=== PATIENT | male | born 1995 | race Caucasian/White ===

== ENCOUNTER 2016-05-27 10:31 | Observation (INO) | payer OTHER, BC ==
--- NOTE | ~2016-05-27 | OR ---
Unit #: [id number] #: [id number] Patient: RACHEL SANTOS [id number] [address] [place], [place] [address] [id number] MR#: [id number] NAME: RACHEL SANTOS ROOM: 221 Date of Procedure: 05/28/2016 Admission Date: 05/27/2016 Surgeon: Skyler Johnson M.D. : 1995 Attending Physician: Aayush Wheeler M.D. Primary Care Physician: Nico Barton M.D. OPERATIVE REPORT PRIMARY CARE PHYSICIAN Dr. Nico Bartno. PREOPERATIVE DIAGNOSES Nausea, vomiting, and epigastric pain. PROCEDURE PERFORMED Upper gastrointestinal endoscopy. POSTOPERATIVE DIAGNOSES The patient had grade 2 distal erosive esophagitis. Otherwise, examination was normal up to third part of duodenum. A biopsy was obtained from the antrum for CLOtest. RECOMMENDATIONS The patient will be started on pantoprazole 40 mg p.o. b.i.d. 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 A detailed discussion was held with the patient and his father, and literature was given regarding the condition, and he was strongly advised to stop using marijuana. We will also start him on diet as tolerated. SEDATION USED Procedural sedation. DESCRIPTION OF PROCEDURE Following detailed explanation of potential risks and complications of an upper endoscopy, namely perforation, bleeding, complications related to sedation, the patient was brought to GI lab and laid in the left lateral decubitus position. Lubricated tip of the Olympus video upper endoscope was passed through the bite block into the proximal esophagus under direct vision. The entire esophageal mucosa was examined, and the patient was noted to have grade 2 distal erosive esophagitis. The scope was then advanced. Entire esophageal mucosa was examined. The patient was noted to have grade 2 distal erosive esophagitis. No stricture was present. The scope was then advanced into the gastric cavity, the latter was insufflated. Mucosa of the fundus, body, and antrum was examined and appeared unremarkable. Pylorus was intubated with visualization of the normal duodenal bulb and second and third part of the duodenum. Upon withdrawal and retroflexion, incisura, cardia, and greater curve examined and biopsy obtained from the antrum for CLOtest. The scope was then Unit #: [id number] #: [id number] Patient: RACHEL SANTOS withdrawn in the distal esophagus. Entire esophageal mucosa was examined all the way up to pharynx. No additional findings noted. The patient tolerated the procedure without any postprocedure complications. Dictated by.Regina Leal TD: 05/29/2016 06:04 JOB #: [id number] OPERATIVE REPORT Page 1 of 1 X Skyler Johnson MD X PROCEDURE OPERATIVE NOTE
--- NOTE | ~2016-05-27 | CO ---
Unit #: [id number] #: [id number] Patient: RACHEL SANTOS [id number] [address] [facility]. [place], [place] [address] [id number] MR#: [id number] NAME: RACHEL SANTOS ROOM: 221 Age: 20 Sex: M Admission Date: 05/27/2016 : 1995 Attending Physician: Aayush Wheeler M.D. Primary Care Physician: Nico Barton M.D. Consultation Date: 05/28/2016 CONSULTATION REPORT PRIMARY CARE PHYSICIAN Nico Barton. REASON FOR CONSULTATION Nausea, vomiting, and upper abdominal pain. HISTORY OF PRESENT ILLNESS Rachel is a 20-year-old gentleman, who has presented with history of nausea and vomiting along with upper abdominal pain over the past few days. The patient has had multiple episodes of similar nature and has been admitted at [facility] with similar symptoms. He has been diagnosed having cyclic vomiting syndrome and has been transferred to [facility] for evaluation. His pain is primarily in the upper abdomen, although slightly diffuse. He has some diarrhea which has since resolved. It is noteworthy that the patient has similar symptoms over the past couple of years having had multiple hospitalizations for the same. PAST MEDICAL HISTORY Significant for history of gastroesophageal reflux; depression; peptic ulcer disease; history of fracture of the cervical 6th, 4th, and 7th vertebrae which improved with white collar. History of perforated colon, status post surgery in 2014. MEDICATIONS At home included Protonix and Zoloft. FAMILY HISTORY Significant for cirrhosis. SOCIAL HISTORY He smokes half pack of cigarette daily. He uses marijuana on a regular basis. Does not drink alcohol. REVIEW OF SYSTEMS Detailed review of organ systems does not reveal any recent weight loss. No history of fever, chills, or rigors. No history of headache, seizures, chest pain, or syncope. No history of cough, expectoration, or hemoptysis. No history of dysuria, hematuria, or pyuria. No history of focal seizures or extremity weakness. PHYSICAL EXAMINATION GENERAL: He is alert and oriented, and comfortable. VITAL SIGNS: Stable with a temperature of 97.5, pulse is varying between Unit #: [id number] #: [id number] Patient: RACHEL SANTOS 50 to 60 per minute and regular, respiratory rate is 16, blood pressure is 124/85. He weighs 220 pounds and appears well nourished. GENERAL: He has no pallor, icterus, lymphadenopathy, or peripheral edema. CARDIOVASCULAR: Normal heart sounds. No murmurs on auscultation. LUNGS: Over the lungs reveal normal breath sounds. Good air entry. ABDOMEN: Soft and nontender. Liver and spleen are not palpable. Bowel sounds normal. DIAGNOSTIC STUDIES LABORATORY RESULTS: Shows a normal CBC and serum chemistry shows a normal metabolic profile except for amylase and lipase of 74 and 55 respectively. These were 58 and 77 yesterday. IMAGING STUDIES: The patient has had a CT scan of the abdomen. CLINICAL IMPRESSION The most likely etiology of the patient's presentation is cyclic vomiting syndrome due to cannabinoid hyperemesis syndrome. Supportive and symptomatic treatment is in order, but the single most important determinant of his outcome is ability of the patient is to completely get rid of marijuana from his routine. This was discussed in great length with the patient and his father. A diagnostic endoscopy is warranted and will be done shortly. The pros and cons of procedure, potential risks, and complications were discussed with the patient and he was reassured. Thank you for asking me to see this young man. I appreciate the consult. Dictated by... Regina Rodrigues/nilsa TD: 05/30/2016 03:31 JOB #: [id number] CONSULTATION REPORT Page 1 of 1 X Skyler Johnson MD X CONSULTATION REPORT
--- NOTE | ~2016-05-27 | HP ---
Unit #: [id number] #: [id number] Patient: RACHEL SANTOS [id number] [address] [place], [place] [address] [id number] I MR#: [id number] NAME: RACHEL SANTOS ROOM: 221 Age: 20 Sex: M Admission Date: 05/27/2016 : 1995 Attending Physician: Aayush Wheeler M.D. Primary Care Physician: Nico Barton M.D. HISTORY AND PHYSICAL CHIEF COMPLAINT Nausea, vomiting, and abdominal pain. DISCUSSION This is a 20-year-old gentleman who has a past medical history of acid reflux, peptic ulcer disease, depression, history of recurrent nausea, vomiting, and abdominal pain in the past. Has had repeated episodes in the past. He presented today in the [facility] with chief complaining of nausea, vomiting, and abdominal pain and he was found to be with the diagnosis of mild pancreatitis and with cyclic vomiting syndrome and, eventually, (1) observation and being admitted here. He said the symptoms started this morning. He has many times vomited, 20 times. He is complaining of diffuse abdominal pain, but no fever, no chills, and no cough. No blood in the stool. He had some diarrhea this morning, which has improved. PAST MEDICAL HISTORY 1. History of peptic ulcer disease. 2. GERD. 3. History of depression. 4. History of fracture of C4, C6, and C7; which were improved without surgery with cervical collar. 5. History of perforated colon, status post colon surgery in 2014. 6. History of EGD and colonoscopy. SOCIAL HISTORY He said he smokes 1/2 pack daily. He uses marijuana once a week. Denies alcohol. Denies other illicit drug use. FAMILY HISTORY Cirrhosis in the family secondary to alcohol abuse. MEDICATIONS FROM HOME 1. Protonix 40 mg daily. 2. Zoloft 50 mg p.o. daily. REVIEW OF SYSTEMS All review of systems negative, except history of present illness. PHYSICAL EXAMINATION GENERAL APPEARANCE: Middle-aged may lying in the bed comfortably. Currently not in any distress. He is alert, awake, and oriented x3. VITAL SIGNS: Current vitals are following: Temp is 97.7, heart rate 58, respiratory rate 20, blood pressure 155/94, and oxygen 98% on room air. Unit #: [id number] #: [id number] Patient: RACHEL SANTOS HEENT: Pupils equal and reactive to light and accommodation. Head is normocephalic and atraumatic. NECK: Supple. No JVD. HEART: S1 and S2. Regular rate and rhythm. LUNGS: Clear to auscultation bilaterally. No rhonchi. No wheezing. ABDOMEN: Soft, nontender, and nondistended. Bowel sounds positive. No guarding. No rigidity. EXTREMITIES: Inspection normal. No cyanosis, no clubbing, and no edema. NEURO: No focal neurologic deficit. SKIN: Warm and dry. DIAGNOSTIC STUDIES LABORATORY: Workup is following. White count 9, hemoglobin 17, hematocrit 52, and platelets are 248. Chemistry: Sodium 140, potassium 4, chloride 104, CO2 26, glucose 113, BUN 12, and creatinine 1.4. LFTs within normal limits. Lipase 77 and amylase is 58. UA is negative. Urine toxicology positive for opiates and positive for marijuana. IMAGING: CT scan of abdomen and pelvis shows no acute finding. ASSESSMENT AND PLAN 1. Nausea, vomiting, and abdominal pain with history of recurrent episodes in the past. Most likely cyclic vomiting syndrome with history of marijuana use. Could be marijuana is contributing (2) in that case. He is telling me he had extensive workup, the ultrasound, HIDA scan, and EGD in the past. Will place the patient on IV Protonix and IV fluids. Questionable pancreatitis with mildly elevated amylase and lipase. Repeat in the morning. Keep clear liquid diet. IV fluids. Ask GI, Dr. Johnson, to evaluate. 2. History of depression on Zoloft. 3. Marijuana abuse. 4. DVT prophylaxis. Will place the patient on SCDs. Dictated by Regina Kilpatrick/irasema TD: 05/28/2016 06:42 JOB #: [id number] HISTORY AND PHYSICAL Page 1 of 1 X X HISTORY AND PHYSICAL
--- NOTE | ~2016-05-27 | EKG ---
PATIENT: RACHEL SANTOS UNIT #: [id number] Ventricular Rate: 57 BPM Atrial Rate: 57 BPM P-R Interval: 152 ms QRS Duration: 114 ms Q-T Interval: 444 ms QTC Calculation(Bezet): 432 ms P [place]: 58 degrees Calculated R [place]: 62 degrees Calculated T [place]: 30 degrees Diagnosis Line: Sinus bradycardia with sinus arrhythmia Diagnosis Line: Otherwise normal ECG Diagnosis Line: When compared with ECG of 28-JUL-2015 17:30, Diagnosis Line: No significant change was found Diagnosis Line: Confirmed by KRISTA GAMEZ MD ([id number]) on 05/29/2016 Diagnosis Line: 2:50:31 PM INTERPRETING MD: VERA SAENZ
--- NOTE | ~2016-05-27 | CT2 ---
[facility] A Service of [facility] RADIOLOGY TEXT RESULTS PATIENT: RACHEL SANTOS LOCATION: [facility] : 94 UNIT #: [id number] AGE: [address]: Rebeca Montoya MD SEX: M ORDER DR: [id number] [id number] E MR#: [id number] Acc #: [id number] NAME: RACHEL SANTOS : 1995 SEX: M STUDY DATE/TIME: 05/27/2016 11:30 UNIT: SED ROOM: STUDY DESCRIPTION: CT Abd and Pelv W Cont Attending Physician: Luc Harman M.D. Ordering Physician: Luc Harman M.D. Primary Care Physician: Nico Barton M.D. MEDICAL IMAGING REPORT This report is preliminary unless electronic signature is present. EXAM CT abdomen and pelvis, with contrast. HISTORY Nausea and vomiting beginning this morning. PROCEDURE Contrast-enhanced CT of the abdomen and pelvis. 100 mL of Isovue-370. This CT exam was performed with one or more of the following radiation dose reduction techniques: automatic exposure control, adjustment of mA and/or kV according to patient size, and iterative reconstruction. COMPARISON 10/19/2015 FINDINGS ABDOMEN WITH CONTRAST: Included lung bases clear. Slight low attenuation liver compared with the spleen; nonspecific on contrast-enhanced CT. Liver otherwise normal. Spleen, kidneys, adrenal glands, pancreas and gallbladder unremarkable. Bowel loops are nondilated. Appendix is normal. PELVIS WITH CONTRAST: No pelvic mass or fluid. No aggressive-appearing bone lesion. IMPRESSION 1. No acute findings. 2. Slightly low attenuation of the liver, compared with the spleen. Nonspecific on contrast-enhanced CT. Could be normal for the patient or reflect mild steatosis. 3. Normal appendix. [facility] A Service [facility] RADIOLOGY TEXT RESULTS PATIENT: RACHEL SANTOS LOCATION: [place] : 94 UNIT #: [id number] AGE: [address]: Rebeca Montoya MD SEX: M ORDER DR: Dictated by... Miguel Christensen M.D. THIS IS AN ELECTRONICALLY VERIFIED REPORT Miguel Christensen M.D. at 05/27/2016 4:51 PM Felicita TD: 05/27/2016 13:13 JOB #: [id number] MEDICAL IMAGING REPORT Page 1 of 1
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
[~2016-05-27 10:31] MED LIST: CARAFATE1 G PO; FLEXERIL10 M1 PO; FLEXERIL10 MG; FLEXERIL10 MG PO; IBUPROFEN800 MG PO; MOTRIN600 M1 PO; NO MEDICATIONS; NORCO1 TAB 10/3 PO; OMEPRAZOLE40 MG PO; PERCOCET; PERCOCET 5-3251 TAB PO; PHENERGAN SUPP25 M1 PR; PHENERGAN12.5 M2 PR; PHENERGAN25 MG PO; PRILOSEC; PROMETHAZI6.25 MG/5 PO; PROTONIX PO; REGLAN; ZOFRANODT SL; ZOLOFT PO
[2016-05-27 10:37] LABS: BASOPHIL# 0.1 X10e3 (0-0.3); BASOPHIL% 0.6 % (0-2.5); EOSINOPHIL# 0.3 X10e3 (0-0.7); EOSINOPHIL% 3.6 % (0.0-7.0); HEMATOCRIT 52.4 % (38.0-50.0); HEMOGLOBIN 17.9 gm/dL (13.0-16.0); LYMPHOCYTE# 2.8 X10e3 (1.0-3.5); LYMPHOCYTE% 30.6 % (17.0-45.0); MEAN CELL VOLUME 88.9 FL (83-96); MEAN CORPUSCULAR HEMOGLOBIN 30.4 PG (28-34); MEAN CORPUSCULAR HGB CONC 34.2 g/dL (30-36); MEAN PLATELET VOLUME 8.4 FL (6.5-11.5); MONOCYTE# 1.1 X10e3 (0-1.0); MONOCYTE% 11.7 % (3.0-12.0); NEUTROPHIL% 53.5 % (40-75); PLATELET COUNT 248 X10e3 (140-420); RED CELL DISTRIBUTION WIDTH 13.4 % (11.0-15.5); WHITE BLOOD COUNT 9.3 X10e3 (4.0-10.5)
[2016-05-27 10:38] LABS: DIFF IND NO
[2016-05-27 10:58] LABS: ALBUMIN SERUM 5.2 g/dL (3.5-5.0); BILIRUBIN, DIRECT 0.1 mg/dL (0.0-0.2); BILIRUBIN,INDIRECT 0.6 mg/dL (0.0-0.9); BILIRUBIN,TOTAL 0.7 mg/dL (0.2-2.0); BUN/CREATININE RATIO 8.57; CALCIUM SERUM 9.5 mg/dL (8.4-10.2); CREATININE SERUM 1.4 mg/dL (0.6-1.4); GLOM FILT RATE Estimated 71.3 mL/min (>60); PROTEIN TOTAL SERUM 7.9 g/dL (6.0-8.3)
[2016-05-27 12:59] LABS: URINE APPEARANCE CLEAR; URINE BILIRUBIN NEG (NEG); URINE BLOOD NEG (NEG); URINE COLOR YELLOW; URINE GLUCOSE NEG (NORM); URINE KETONE NEG (NEG); URINE LEUKOCYTE ESTERASE NEG (NEG); URINE NITRATE NEG (NEG); URINE PH 6.5 (5-8); URINE PROTEIN NEG (NEG); URINE SOURCE CLEAN CATCH; URINE UROBILINOGEN 0.2 MG/DL (NORM)
[2016-05-27 13:08] LABS: MICRO INDICATED? NO
[2016-05-27 13:11] LABS: AMPHETAMINE NEG (NEG); BARBITURATES NEG (NEG); BENZODIAZEPINES NEG (NEG); COCAINE NEG (NEG); MARIJUANA POS (NEG); OPIATES POS (NEG); TRICYCLIC ANTIDEPRESSANTS NEG (NEG); U METHADONE NEG (NEG)
[2016-05-28 06:24] LABS: BASOPHIL% 0.4 % (0-2.5); EOSINOPHIL# 0.1 X10e3 (0-0.7); EOSINOPHIL% 1.2 % (0.0-7.0); HEMATOCRIT 46.8 % (38.0-50.0); LYMPHOCYTE# 2.5 X10e3 (1.0-3.5); LYMPHOCYTE% 27.5 % (17.0-45.0); MEAN CELL VOLUME 89.3 FL (83-96); MEAN CORPUSCULAR HEMOGLOBIN 29.2 PG (28-34); MEAN CORPUSCULAR HGB CONC 32.7 g/dL (30-36); MEAN PLATELET VOLUME 8.3 FL (6.5-11.5); MONOCYTE# 0.7 X10e3 (0-1.0); MONOCYTE% 8.2 % (3.0-12.0); NEUTROPHIL# 5.7 X10e3 (1.5-7.1); NEUTROPHIL% 62.7 % (40-75); PLATELET COUNT 177 X10e3 (140-420); RED BLOOD COUNT 5.24 X10e (3.90-5.60); RED CELL DISTRIBUTION WIDTH 13.2 % (11.0-15.5); WHITE BLOOD COUNT 9.1 X10e3 (4.0-10.5)
[2016-05-28 06:25] LABS: DIFF IND NO; HEMOGLOBIN 15.3 gm/dL (13.0-16.0)
[2016-05-28 07:23] LABS: ALBUMIN SERUM 3.8 g/dL (3.5-5.0); BILIRUBIN,TOTAL 0.4 mg/dL (0.2-2.0); BUN/CREATININE RATIO 5.45; CALCIUM SERUM 8.9 mg/dL (8.4-10.2); CREATININE SERUM 1.1 mg/dL (0.6-1.4); GLOM FILT RATE Estimated 95.5 mL/min (>60); POTASSIUM 4.1 mmol/L (3.5-5.1); PROTEIN TOTAL SERUM 5.6 g/dL (6.0-8.3)
[2016-05-29 06:07] LABS: HEMATOCRIT 44.8 % (38.0-50.0); MEAN CELL VOLUME 88.7 FL (83-96); MEAN CORPUSCULAR HEMOGLOBIN 29.7 PG (28-34); MEAN CORPUSCULAR HGB CONC 33.5 g/dL (30-36); MEAN PLATELET VOLUME 8.1 FL (6.5-11.5); RED BLOOD COUNT 5.06 X10e (3.90-5.60); RED CELL DISTRIBUTION WIDTH 12.9 % (11.0-15.5); WHITE BLOOD COUNT 7.2 X10e3 (4.0-10.5)
[2016-05-29 07:06] LABS: BUN/CREATININE RATIO 6.36; CALCIUM SERUM 9.1 mg/dL (8.4-10.2); CREATININE SERUM 1.1 mg/dL (0.6-1.4); GLOM FILT RATE Estimated 95.5 mL/min (>60); POTASSIUM 3.8 mmol/L (3.5-5.1)
[2016-05-29] MEDS ORDERED: PROTONIX PO (14:14)
[2016-05-29] MEDS ORDERED: PHENERGAN25 M1 PO (14:14)
== END 2016-05-29 15:00 | disposition home or self-care (01) | DRG 391 ==
LOC: SED 10:31 → CEDOF 13:46 → C2A 20:40
PROVIDERS: Emergency Medicine; Internal Medicine; Internal Medicine Gastroenterology
DX: R11.2 Nausea with vomiting, unspecified (principal); K85.90 Acute pancreatitis without necrosis or infection, unspecified; G89.29 Other chronic pain; K21.0 Gastro-esophageal reflux disease with esophagitis; F12.10 Cannabis abuse, uncomplicated; F17.210 Nicotine dependence, cigarettes, uncomplicated; F32.9 Major depressive disorder, single episode, unspecified; Z87.11 Personal history of peptic ulcer disease; Z87.81 Personal history of (healed) traumatic fracture; Z81.1 Family history of alcohol abuse and dependence
CPT/HCPCS: 36415; 74177; 80048; 80053; 80061; 80076; 80307; 81003; 82150; 83690; 85025; 85027; 87077; 93005; 96361; 96374; 96375; 96376; 99285; C9113; G0378; J2250; J2270; J2405; J2550; J2765; J3010; Q9967

== ENCOUNTER 2016-06-05 17:32 | Emergency (ER) | payer OTHER, BC ==
--- NOTE | ~2016-06-05 | CR2 ---
[facility] A Service of [facility] RADIOLOGY TEXT RESULTS PATIENT: RACHEL SANTOS LOCATION: SED : 94 UNIT #: [id number] AGE: [address]: Naveen Givens MD SEX: M ORDER DR: [id number] [id number] E MR#: [id number] Acc #: [id number] NAME: RACHEL SANTOS : 1995 SEX: M STUDY DATE/TIME: 06/05/2016 18:10 UNIT: SED ROOM: STUDY DESCRIPTION: CR Abdomen Acute Series Attending Physician: Naveen Givens M.D. Referring Physician: Winston Do M.D. Ordering Physician: Janice Venegas Pa-C Primary Care Physician: Nico Barton M.D. MEDICAL IMAGING REPORT This report is preliminary unless electronic signature is present. EXAM Acute abdomen series, 4 views, 06/05/2016 HISTORY Diarrhea for 3 days with nausea, vomiting, generalized abdominal pain, unable to keep food down. FINDINGS Single frontal view of the chest taken at the time of the abdominal examination is within normal limits. AP, supine, and upright examination of the abdomen shows a normal gas and fecal pattern distribution throughout large and small bowel without distended loops in either area. There is no indication of extraluminal air, unusual visceromegaly, or soft tissue density mass. The renal definitions are fairly well demarcated and normal in shape and size. No abnormal intra-abdominal calcifications are present. IMPRESSION Normal acute abdomen series. Dictated by... Tin Maguire M.D. THIS IS AN ELECTRONICALLY VERIFIED REPORT Tin Maguire M.D. at 06/06/2016 10:28 AM ROBERTO/sharmin TD: 06/05/2016 22:39 JOB #: [id number] [facility] A Service of [facility] RADIOLOGY TEXT RESULTS PATIENT: RACHEL SANTOS LOCATION: SED : 94 UNIT #: [id number] AGE: [address]: Naveen Givens MD SEX: M ORDER DR: MEDICAL IMAGING REPORT Page 1 of 1
--- NOTE | ~2016-06-05 | US67 ---
[facility] A Service of [facility] RADIOLOGY TEXT RESULTS PATIENT: RACHEL SANTOS LOCATION: SED : 94 UNIT #: [id number] AGE: [address]: Naveen Givens MD SEX: M ORDER DR: [id number] E MR#: [id number] Acc #: [id number] NAME: RACHEL SANTOS : 1995 SEX: M STUDY DATE/TIME: 06/05/2016 19:22 UNIT: SED ROOM: STUDY DESCRIPTION: Gallbladder Attending Physician: Naveen Givens M.D. Referring Physician: Winston Do M.D. Ordering Physician: Janice Venegas Pa-C Primary Care Physician: Nico Barton M.D. MEDICAL IMAGING REPORT This report is preliminary unless electronic signature is present. EXAM Gallbladder ultrasound, 06/05/2016 HISTORY Nausea, vomiting and diarrhea for 10 days with weight loss. FINDINGS The liver demonstrates an increase in echotexture with attenuation of the ultrasound beam characteristic of fatty infiltration. No cystic or solid mass lesions were seen in the liver. The intra- and extrahepatic bile ducts are not dilated. The gallbladder is normal with no evidence of cholelithiasis, wall thickening or pericholecystic fluid. The common duct measures 3 mm. The pancreas is poorly visualized due to overlying bowel gas. The right kidney is normal. IMPRESSION 1. Fatty infiltration of the liver. 2. Normal gallbladder. 3. Poor visualization of the pancreas due to overlying bowel gas. Dictated by... Tin Maguire M.D. THIS IS AN ELECTRONICALLY VERIFIED REPORT Tin Maguire M.D. at 06/06/2016 10:28 AM ROBERTO/sharmin TD: 06/06/2016 00:21 JOB #: [id number] MEDICAL IMAGING REPORT [facility] A Service [facility] RADIOLOGY TEXT RESULTS PATIENT: RACHEL SANTOS LOCATION: SED : 94 UNIT #: [id number] AGE: [address]: Naveen Givens MD SEX: M ORDER DR: Page 1 of 1
[~2016-06-05 17:32] MED LIST changes: +PHENERGAN25 M1 PO
[2016-06-05 17:59] LABS: BASOPHIL% 0.4 % (0-2.5); EOSINOPHIL# 0.2 X10e3 (0-0.7); EOSINOPHIL% 2.7 % (0.0-7.0); HEMATOCRIT 49.4 % (38.0-50.0); HEMOGLOBIN 17.1 gm/dL (13.0-16.0); LYMPHOCYTE# 1.9 X10e3 (1.0-3.5); LYMPHOCYTE% 22.5 % (17.0-45.0); MEAN CELL VOLUME 87.2 FL (83-96); MEAN CORPUSCULAR HEMOGLOBIN 30.3 PG (28-34); MEAN CORPUSCULAR HGB CONC 34.7 g/dL (30-36); MEAN PLATELET VOLUME 8.3 FL (6.5-11.5); MONOCYTE# 0.7 X10e3 (0-1.0); MONOCYTE% 7.8 % (3.0-12.0); NEUTROPHIL# 5.7 X10e3 (1.5-7.1); NEUTROPHIL% 66.6 % (40-75); PLATELET COUNT 219 X10e3 (140-420); RED BLOOD COUNT 5.66 X10e (3.90-5.60); RED CELL DISTRIBUTION WIDTH 13.4 % (11.0-15.5); WHITE BLOOD COUNT 8.6 X10e3 (4.0-10.5)
[2016-06-05 18:00] LABS: DIFF IND NO
[2016-06-05 18:18] LABS: BILIRUBIN, DIRECT 0.2 mg/dL (0.0-0.2); BILIRUBIN,INDIRECT 1.1 mg/dL (0.0-0.9); BILIRUBIN,TOTAL 1.3 mg/dL (0.2-2.0); BUN/CREATININE RATIO 11.81; CALCIUM SERUM 9.4 mg/dL (8.4-10.2); CREATININE SERUM 1.1 mg/dL (0.6-1.4); GLOM FILT RATE Estimated 95.5 mL/min (>60); POTASSIUM 3.9 mmol/L (3.5-5.1); PROTEIN TOTAL SERUM 7.6 g/dL (6.0-8.3)
[2016-06-05 19:02] LABS: URINE SOURCE CLEAN CATCH
[2016-06-05 19:05] LABS: URINE APPEARANCE CLEAR; URINE BLOOD NEG (NEG); URINE COLOR YELLOW; URINE GLUCOSE NEG (NORM); URINE LEUKOCYTE ESTERASE NEG (NEG); URINE NITRATE NEG (NEG); URINE PROTEIN TRACE (NEG)
[2016-06-05 19:06] LABS: MICRO INDICATED? NO; URINE BILIRUBIN NEG (NEG); URINE KETONE 2+ (NEG)
[2016-06-05 19:15] LABS: AMPHETAMINE NEG (NEG); BARBITURATES NEG (NEG); BENZODIAZEPINES NEG (NEG); COCAINE NEG (NEG); MARIJUANA POS (NEG); OPIATES POS (NEG); TRICYCLIC ANTIDEPRESSANTS NEG (NEG); U METHADONE NEG (NEG)
== END 2016-06-05 22:54 | disposition home or self-care (01) ==
LOC: SED 17:32
PROVIDERS: Physician Assistant
DX: R11.2 Nausea with vomiting, unspecified (principal); F17.210 Nicotine dependence, cigarettes, uncomplicated
CPT/HCPCS: 36415; 74022; 76705; 80048; 80076; 80307; 81003; 83690; 85025; 96361; 96374; 96375; 99284; G0480; J2405; J2550

== ENCOUNTER → 2016-06-07 | Outpatient (CLI) | payer OTHER, BC ==
[~2016-06-07] MED LIST changes: +BENTYL10 MG PO; +IBUPROFEN PO; +PATIENT'S PHARMACY; +REGLAN PO; +ZOFRAN ODT4 M1 PO
--- NOTE | ~2016-06-07 | NM22 ---
[facility] A Service of [facility] RADIOLOGY TEXT RESULTS PATIENT: RACHEL SANTOS LOCATION: [facility] : 94 UNIT #: [id number] AGE: [address]: Tami Hanson APRN SEX: M ORDER DR: [id number] [id number] [facility] [place], [place] [address] [id number] O MR#: [id number] Acc #: [id number] NAME: RACHEL SANTOS : 1995 SEX: M STUDY DATE/TIME: 06/07/2016 15:57 UNIT: [facility] ROOM: STUDY DESCRIPTION: AURY Hepatobiliary W GB Pharm Attending Physician: Tami Hanson A.P.R.N. Referring Physician: Tami Hanson A.P.R.N. Ordering Physician: Tami Hanson A.P.R.N. Primary Care Physician: Nico Barton M.D. MEDICAL IMAGING REPORT This report is preliminary unless electronic signature is present EXAM Hepatobiliary scan INDICATION Nausea, vomiting and diarrhea. Left lower quadrant abdominal pain and generalized abdominal pain for the past 1-1/2 weeks. PROCEDURE Patient was administered 5.53 mCi technetium labeled Choletec. Imaging of the upper abdomen was performed for 60 minutes then patient was measured 1.9 mcg of Kinevac IV per protocol. COMPARISON Right upper quadrant ultrasound, 06/05/2016 FINDINGS Liver shows symmetric extraction and excretion of radiotracer. Gallbladder fills by 60 minutes. Ejection fraction is 84% at 30. IMPRESSION Normal study. Dictated by... Miguel Christensen M.D. THIS IS AN ELECTRONICALLY VERIFIED REPORT Miguel Christensen M.D. at 06/09/2016 6:52 AM Lay TD: 06/08/2016 10:21 JOB #: [id number] MEDICAL IMAGING REPORT [facility] A Service of [facility] RADIOLOGY TEXT RESULTS PATIENT: RACHEL SANTOS LOCATION: [facility] : 94 UNIT #: [id number] AGE: [address]: Tami Hanson APRN SEX: M ORDER DR: Page 1 of 1 COPY
== END | disposition home or self-care (01) ==
LOC: CNUC 13:12
DX: R11.2 Nausea with vomiting, unspecified (principal); R19.7 Diarrhea, unspecified; R10.32 Left lower quadrant pain
CPT/HCPCS: 78227; A9537; J2805

== ENCOUNTER 2016-06-09 20:36 | Emergency (ER) | payer OTHER, BC ==
--- NOTE | ~2016-06-09 | EKG ---
PATIENT: RACHEL SANTOS UNIT #: [id number] Ventricular Rate: 59 BPM Atrial Rate: 59 BPM P-R Interval: 146 ms QRS Duration: 96 ms Q-T Interval: 432 ms QTC Calculation(Bezet): 427 ms P [place]: 28 degrees Calculated R [place]: 39 degrees Calculated T [place]: 36 degrees Diagnosis Line: Sinus bradycardia Premature atrial complexes Diagnosis Line: Otherwise normal ECG Diagnosis Line: When compared with ECG of 28-MAY-2016 14:59, Diagnosis Line: No significant change was found Diagnosis Line: Confirmed by CJ MORRISSEY MD ([id number]) on 06/10/2016 Diagnosis Line: 6:34:53 AM INTERPRETING MD: GHANSHYAM SAENZ
--- NOTE | ~2016-06-09 | CT2 ---
[facility] A Service of [facility] RADIOLOGY TEXT RESULTS PATIENT: RACHEL SANTOS LOCATION: [facility] : 94 UNIT #: [id number] AGE: [address]: Scot Walsh MD SEX: M ORDER DR: [id number] [facility] [address] [facility] [place], [place] [address] [id number] E MR#: [id number] Acc #: [id number] NAME: RACHEL SANTOS : 1995 SEX: M STUDY DATE/TIME: 06/09/2016 23:37 UNIT: [facility] ROOM: STUDY DESCRIPTION: CT Abd and Pelv W Cont Attending Physician: Scot Walsh M.D. Ordering Physician: Vahid Cotto M.D. Primary Care Physician: Nico Barton M.D. MEDICAL IMAGING REPORT This report is preliminary unless electronic signature is present EXAM Abdomen and pelvis CT, 06/09 at 23:37 INDICATIONS Abdominal pain and vomiting that started today with generalized weakness. History of gastric ulcer. TECHNIQUE Axial images were obtained through the abdomen and pelvis following IV contrast administration. Multiplanar reformats were obtained. Comparison made with 05/27/2016. This CT exam was performed with one or more of the following radiation dose reduction techniques: Automatic exposure control, adjustment of mA and/or kV according to patient size, and iterative reconstruction. FINDINGS ABDOMEN: Lung bases are clear. Gallbladder is normal. Fatty infiltration of the liver is present. Solid organs are otherwise normal. No free fluid or adenopathy. Unopacified GI tract is normal. PELVIS: The appendix is normal. The remainder of the unopacified GI tract is normal as well. Urinary bladder is normal. No free fluid is seen. 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 IMPRESSION 1. No acute findings in the abdomen or pelvis. 2. Normal unopacified GI tract, including the appendix. 3. Fatty infiltration of the liver. Dictated by... [facility] A Service [facility] RADIOLOGY TEXT RESULTS PATIENT: RACHEL SANTOS LOCATION: [facility] : [birth year] UNIT #: [id number] AGE: [address]: Scot Walsh MD SEX: M ORDER DR: Vahid Watkins Jr., M.D. THIS IS AN ELECTRONICALLY VERIFIED REPORT Vahid Watkins Jr., M.D. at 06/13/2016 7:21 AM PAN/sharmin TD: 06/10/2016 04:04 JOB #: [id number] MEDICAL IMAGING REPORT Page 1 of 1 COPY
[2016-06-09 20:28] LABS: POC - CKMB 2.6 ng/mL (0.0-7.9); POC - TROPONIN <0.05 ng/mL (<=0.05)
[~2016-06-09 20:36] MED LIST changes: -BENTYL10 MG PO; -IBUPROFEN PO; -PATIENT'S PHARMACY; -REGLAN PO; -ZOFRAN ODT4 M1 PO
[2016-06-09 20:41] LABS: BASOPHIL% 0.5 % (0-2.5); EOSINOPHIL# 0.1 X10e3 (0-0.7); EOSINOPHIL% 1.3 % (0.0-7.0); HEMATOCRIT 50.6 % (38.0-50.0); HEMOGLOBIN 17.5 gm/dL (13.0-16.0); LYMPHOCYTE# 2.4 X10e3 (1.0-3.5); LYMPHOCYTE% 22.3 % (17.0-45.0); MEAN CELL VOLUME 86.6 FL (83-96); MEAN CORPUSCULAR HEMOGLOBIN 29.9 PG (28-34); MEAN CORPUSCULAR HGB CONC 34.5 g/dL (30-36); MEAN PLATELET VOLUME 8.9 FL (6.5-11.5); MONOCYTE# 0.7 X10e3 (0-1.0); MONOCYTE% 6.8 % (3.0-12.0); NEUTROPHIL# 7.4 X10e3 (1.5-7.1); NEUTROPHIL% 69.1 % (40-75); PLATELET COUNT 278 X10e3 (140-420); RED BLOOD COUNT 5.84 X10e (3.90-5.60); WHITE BLOOD COUNT 10.7 X10e3 (4.0-10.5)
[2016-06-09 20:43] LABS: DIFF IND NO
[2016-06-09 21:07] LABS: ALBUMIN SERUM 5.3 g/dL (3.5-5.0); BILIRUBIN, DIRECT 0.2 mg/dL (0.0-0.2); BILIRUBIN,INDIRECT 1.1 mg/dL (0.0-0.9); BILIRUBIN,TOTAL 1.3 mg/dL (0.2-2.0); BUN/CREATININE RATIO 9.16; CREATININE SERUM 1.2 mg/dL (0.6-1.4); GLOM FILT RATE Estimated 85.9 mL/min (>60)
== END 2016-06-10 01:24 | disposition home or self-care (01) ==
LOC: CED 20:36
PROVIDERS: Emergency Medicine
DX: R11.10 Vomiting, unspecified (principal); F32.9 Major depressive disorder, single episode, unspecified; F41.9 Anxiety disorder, unspecified; F17.200 Nicotine dependence, unspecified, uncomplicated
CPT/HCPCS: 36415; 74177; 80048; 80076; 82553; 84484; 85025; 93005; 96361; 96374; 96375; 99284; J2060; J2405; J2550; J2765; Q9967

== ENCOUNTER 2016-07-29 18:28 | Emergency (ER) | payer OTHER, BC ==
--- NOTE | ~2016-07-29 | CT2 ---
[facility] A Service of [facility] RADIOLOGY TEXT RESULTS PATIENT: RACHEL SANTOS LOCATION: [facility] : [birth year] UNIT #: [id number] AGE: [address]: Vahid Cotto MD SEX: M ORDER DR: [id number] [facility] [address] [place], [place] [address] [id number] E MR#: [id number] Acc #: [id number] NAME: RACHEL SANTOS : 1995 SEX: M STUDY DATE/TIME: 07/29/2016 20:31 UNIT: [facility] ROOM: STUDY DESCRIPTION: CT Abd and Pelv W Cont Attending Physician: Vahid Cotto M.D. Ordering Physician: Dev White M.D. Primary Care Physician: Nico Barton M.D. MEDICAL IMAGING REPORT This report is preliminary unless electronic signature is present EXAM CT abdomen and pelvis with contrast, 07/29/2016. HISTORY 20-year-old male with abdominal pain and vomiting beginning today. COMPARISON CT abdomen and pelvis, 06/09/2016. TECHNIQUE Helical scan performed through the abdomen and pelvis following administration of IV contrast. Coronal and sagittal reformatted images. This CT exam was performed with one or more of the following radiation dose reduction techniques: automatic exposure control, adjustment of mA and/or kV according to patient size, and iterative reconstruction. FINDINGS Visualized lung bases are unremarkable. The liver, spleen, pancreas, gallbladder, both adrenal glands, and both kidneys are within normal limits. Abdominal aorta normal in course and caliber without dissection. Small bowel is unremarkable without obstruction. Appendix is normal. Colon is unremarkable. No free fluid or free air. The urinary bladder and prostate gland are unremarkable. No free pelvic fluid. No acute bony abnormality. IMPRESSION 1. No acute abdominal or pelvic findings. 2. Normal appendix. [facility] A Service [facility] RADIOLOGY TEXT RESULTS PATIENT: RACHEL SANTOS LOCATION: [facility] : 94 UNIT #: [id number] AGE: [address]: Vahid Cotto MD SEX: M ORDER DR: Dictated by... Curt Castrejon M.D. THIS IS AN ELECTRONICALLY VERIFIED REPORT Curt Castrejon M.D. at 08/01/2016 7:19 AM JESSIE/mallory TD: 07/30/2016 08:33 JOB #: [id number] MEDICAL IMAGING REPORT Page 1 of 1 COPY
--- NOTE | ~2016-07-29 | EKG ---
PATIENT: RACHEL SANTOS UNIT #: [id number] Ventricular Rate: 41 BPM Atrial Rate: 41 BPM P-R Interval: 146 ms QRS Duration: 96 ms Q-T Interval: 464 ms QTC Calculation(Bezet): 382 ms P Homer: 25 degrees Calculated R Homer: 40 degrees Calculated T Homer: 32 degrees Diagnosis Line: Marked sinus bradycardia Diagnosis Line: Abnormal ECG Diagnosis Line: No previous ECGs available Diagnosis Line: Confirmed by SAMI VAUGHAN MD ([id number]) on Diagnosis Line: 07/30/2016 1:58:13 PM INTERPRETING MD: LIN
--- NOTE | ~2016-07-29 | CR72 ---
[facility] A Service of [facility] RADIOLOGY TEXT RESULTS PATIENT: RACHEL SANTOS LOCATION: [facility] : [birth year] UNIT #: [id number] AGE: [address]: Vahid Cotto MD SEX: M ORDER DR: [id number] [facility] [address] [place], [place] [address] [id number] E MR#: [id number] Acc #: [id number] NAME: RACHEL SANTOS : 1995 SEX: M STUDY DATE/TIME: 07/29/2016 18:54 UNIT: [facility] ROOM: STUDY DESCRIPTION: CR Chest Single View Portable Attending Physician: Vahid Cotto M.D. Ordering Physician: Dev White M.D. Primary Care Physician: Nico Barton M.D. MEDICAL IMAGING REPORT This report is preliminary unless electronic signature is present EXAM Portable chest 07/29/2016 HISTORY 20-year-old male with chest pain beginning today. COMPARISON Chest 07/14/2015 FINDINGS Frontal chest demonstrates clear lungs. No pleural effusion or pneumothorax. Heart size and mediastinum are normal. Pulmonary vasculature normal. IMPRESSION No acute cardiopulmonary findings Dictated by... Curt Castrejon M.D. THIS IS AN ELECTRONICALLY VERIFIED REPORT Curt Castrejon M.D. at 08/01/2016 7:18 AM JESSIE/joce TD: 07/30/2016 04:21 JOB #: [id number] MEDICAL IMAGING REPORT Page 1 of 1 COPY
[2016-07-29] MEDS ORDERED: BENTYL10 MG PO (18:38)
[2016-07-29] MEDS ORDERED: REGLAN PO (18:39)
[2016-07-29] MEDS ORDERED: ZOFRAN ODT4 M1 PO (18:39)
[2016-07-29] MEDS ORDERED: IBUPROFEN PO (18:39)
[2016-07-29] MEDS ORDERED: PATIENT'S PHARMACY (18:40)
[2016-07-29 18:58] LABS: BASOPHIL# 0.1 X10e3 (0-0.3); BASOPHIL% 0.4 % (0-2.5); EOSINOPHIL# 0.1 X10e3 (0-0.7); EOSINOPHIL% 0.7 % (0.0-7.0); HEMATOCRIT 51.6 % (38.0-50.0); HEMOGLOBIN 17.3 gm/dL (13.0-16.0); LYMPHOCYTE# 1.9 X10e3 (1.0-3.5); LYMPHOCYTE% 11.7 % (17.0-45.0); MEAN CELL VOLUME 88.8 FL (83-96); MEAN CORPUSCULAR HEMOGLOBIN 29.8 PG (28-34); MEAN CORPUSCULAR HGB CONC 33.6 g/dL (30-36); MEAN PLATELET VOLUME 8.5 FL (6.5-11.5); MONOCYTE# 0.8 X10e3 (0-1.0); MONOCYTE% 5.1 % (3.0-12.0); NEUTROPHIL# 13.6 X10e3 (1.5-7.1); NEUTROPHIL% 82.1 % (40-75); PLATELET COUNT 206 X10e3 (140-420); RED BLOOD COUNT 5.81 X10e (3.90-5.60); RED CELL DISTRIBUTION WIDTH 13.4 % (11.0-15.5); WHITE BLOOD COUNT 16.5 X10e3 (4.0-10.5)
[2016-07-29 19:04] LABS: DIFF IND YES
[2016-07-29 19:17] LABS: ALBUMIN SERUM 5.4 g/dL (3.5-5.0); ALKALINE PHOSPHATASE 52 U/L (32-92); ALT (SGPT) 49 U/L (10-40); AMYLASE 27 U/L (0-46); AST (SGOT) 25 U/L (10-42); BILIRUBIN, DIRECT 0.2 mg/dL (0.0-0.2); BILIRUBIN,INDIRECT 1.1 mg/dL (0.0-0.9); BILIRUBIN,TOTAL 1.3 mg/dL (0.2-2.0); BLOOD UREA NITROGEN 10 mg/dL (9-23); BUN/CREATININE RATIO 8.33; CALCIUM SERUM 10.2 mg/dL (8.4-10.2); CARBON DIOXIDE 18 mmol/L (22-31); CHLORIDE 106 mmol/L (100-111); CREATININE SERUM 1.2 mg/dL (0.6-1.4); GLOM FILT RATE Estimated 85.9 mL/min (>60); GLUCOSE FASTING 111 mg/dL (70-110); LIPASE 28 U/L (22-51); POTASSIUM 3.8 mmol/L (3.5-5.1); PROTEIN TOTAL SERUM 8.2 g/dL (6.0-8.3); SALICYLATE <4.0 mg/dL; SODIUM 136 mmol/L (135-145)
[2016-07-29 19:21] LABS: ACETAMINOPHEN <10 ug/mL; ALCOHOL BLOOD <5 mg/dL (0)
[2016-07-29 19:24] LABS: PLATELET ESTIMATE NORMAL (NORMAL); RBC NORMAL YES
[2016-07-29 20:49] LABS: POC - CKMB <1.0 ng/mL (0.0-7.9); POC - TROPONIN <0.05 ng/mL (<=0.05)
[2016-07-29 22:27] LABS: URINE SOURCE CLEAN CATCH
[2016-07-29 22:34] LABS: URINE APPEARANCE CLEAR; URINE BILIRUBIN NEG (NEG); URINE BLOOD NEG (NEG); URINE COLOR YELLOW; URINE GLUCOSE NEG (NEG); URINE KETONE 3+ (NEG); URINE LEUKOCYTE ESTERASE NEG (NEG); URINE NITRATE NEG (NEG); URINE PROTEIN NEG (NEG); URINE SPECIFIC GRAVITY 1.064 (1.003-1.035)
[2016-07-29 22:40] LABS: CULTURE INDICATED? NO
[2016-07-29 22:50] LABS: AMPHETAMINE NEG (NEG); BARBITURATES NEG (NEG); BENZODIAZEPINES NEG (NEG); COCAINE NEG (NEG); MARIJUANA POS (NEG); OPIATES NEG (NEG); TRICYCLIC ANTIDEPRESSANTS NEG (NEG); U METHADONE NEG (NEG)
== END 2016-07-30 01:15 | disposition home or self-care (01) ==
LOC: CED 18:28
PROVIDERS: Emergency Medicine
DX: G43.A0 Cyclical vomiting, in migraine, not intractable (principal); R19.7 Diarrhea, unspecified; F17.200 Nicotine dependence, unspecified, uncomplicated
CPT/HCPCS: 36415; 71010; 74177; 80048; 80076; 80307; 81003; 82150; 82553; 83690; 84484; 85025; 93005; 96361; 96372; 96374; 96375; 99284; G0480; J0500; J1200; J2405; J2550; J2765; Q9967